=== PATIENT | male | born 1970 | race Caucasian/White ===

== ENCOUNTER → 2016-10-01 | Outpatient (CLI) | payer BC ==
[~2016-10-01] MED LIST: FEXO1TAB49 PO; SERT-234 PO
--- NOTE | 2016-10-01 10:28 | DIAGNOSTIC IMAGING REPORT ---
LEFT KNEE 1 OR 2 VIEWS ROUTINE CLINICAL HISTORY: LEFT KNEE PAIN COMPARISON: None. DISCUSSION: No fractures are visualized. There are no erosive or destructive changes. There is no radiographic evidence of a joint effusion. IMPRESSION: No bony abnormalities identified. Electronically signed by: Jose Castro M.D. 10/01/2016 10:27 AM Dictated Date/Time: 10/01/2016 10:27 AM
== END | disposition home or self-care (01) ==
LOC: C.RAD1850 09:54
PROVIDERS: ATTEND Family Medicine
DX: M25.569 Pain in unspecified knee (principal)